=== PATIENT | male | born 1995 | race African-American/Black ===

== ENCOUNTER 2024-06-11 20:50 | Emergency (ER) | payer SELFPAY ==
[~2024-06-11] VITALS: Ht 185.4 cm; Wt 81.0 kg
[2024-06-11 20:56] VITALS: O2SAT 98
[2024-06-11 21:13] VITALS: BP 164/92; TEMP 97.8
[2024-06-11] MEDS: DEXAMETHASONE 10 MG/ML VIAL PO ONE (21:15)
[2024-06-11 21:29] VITALS: PULSE 98; RESP 20; O2SAT 94
[2024-06-11] MEDS: IPRATROPIUM/ALBUTEROL 0.5-3(2.5)MG/3ML NEB HHN ONE (21:29)
[2024-06-11] MEDS ORDERED: IPRATROPIUM/ALBUTEROL 0.5-3(2.5)MG/3ML NEB HHN ONE (23:30)
[2024-06-14] MEDS ORDERED: FLUT12AE7 INH (09:43)
[2024-06-14] MEDS ORDERED: AMLO5TAB88 PO (09:43)
[2024-06-14] MEDS ORDERED: P20 PO (09:43)
== END 2024-06-11 23:41 | disposition left against medical advice (07) ==
LOC: ER 20:50
DX: J45.901 Unspecified asthma with (acute) exacerbation (principal); Z88.8 Allergy status to other drugs, medicaments and biological substances; Z91.041 Radiographic dye allergy status; Z79.52 Long term (current) use of systemic steroids
CPT/HCPCS: 71045; 94640; 93005; 99283; Z7610 ×3